=== PATIENT | male | born 1965 | race Caucasian/White ===

== ENCOUNTER → 2016-07-15 | Outpatient (CLI) | payer BC ==
[2016-07-15 13:02] LABS: ALT 47 U/L (21-72); AST 33 U/L (17-59); Alkaline Phosphatase 56 U/L (38-126); Anion Gap 9 mmol/L; Blood Urea Nitrogen 23 mg/dL (9-20); Calcium 9.4 mg/dL (8.4-10.2); Carbon Dioxide 29 mmol/L (22-30); Chloride 105 mmol/L (98-107); Cholesterol 94 mg/dL (<200); Glucose 87 mg/dL (74-99); HDL Cholesterol 42 mg/dL (40-60); Non-African American GFR(MDRD) >60 (>60 ml/min/1.73 sqM); Potassium 4.8 mmol/L (3.5-5.1); Sodium 143 mmol/L (137-145); Total Bilirubin 1.4 mg/dL (0.2-1.3); Total Protein 7.8 g/dL (6.3-8.2); Triglycerides 59 mg/dL (<150)
== END | disposition home or self-care (01) ==
LOC: LABWHC1 12:23
PROVIDERS: ATTEND Internal Medicine Interventional Cardiology
DX: E78.2 Mixed hyperlipidemia (principal)
CPT/HCPCS: 36415; 80053; 80061

== ENCOUNTER → 2017-01-31 | Outpatient (CLI) | payer BC ==
[2017-01-31 13:30] LABS: ALT 41 U/L (21-72); AST 30 U/L (17-59); Alkaline Phosphatase 65 U/L (38-126); Anion Gap 10 mmol/L; Blood Urea Nitrogen 23 mg/dL (9-20); Calcium 9.1 mg/dL (8.4-10.2); Carbon Dioxide 27 mmol/L (22-30); Chloride 104 mmol/L (98-107); Cholesterol 85 mg/dL (<200); Glucose 90 mg/dL (74-99); HDL Cholesterol 31 mg/dL (40-60); Non-African American GFR(MDRD) >60 (>60 ml/min/1.73 sqM); Potassium 4.2 mmol/L (3.5-5.1); Sodium 141 mmol/L (137-145); Total Bilirubin 1.3 mg/dL (0.2-1.3); Total Protein 7.4 g/dL (6.3-8.2); Triglycerides 81 mg/dL (<150)
== END | disposition home or self-care (01) ==
LOC: LABWHC1 12:35
PROVIDERS: ATTEND Internal Medicine Interventional Cardiology
DX: E78.2 Mixed hyperlipidemia (principal)
CPT/HCPCS: 36415; 80053; 80061

== ENCOUNTER → 2017-08-02 | Outpatient (CLI) | payer BC ==
[2017-08-02 14:13] LABS: ALT 35 U/L (21-72); AST 27 U/L (17-59); Cholesterol 82 mg/dL (<200); HDL Cholesterol 30 mg/dL (40-60); LDL Cholesterol,Calculated 36 mg/dL (0-99); Triglycerides 80 mg/dL (<150)
== END | disposition home or self-care (01) ==
LOC: LABWHC1 13:22
PROVIDERS: ATTEND Nurse Practitioner Adult Health
DX: E78.2 Mixed hyperlipidemia (principal)
CPT/HCPCS: 36415; 80061; 84450; 84460

== ENCOUNTER → 2018-08-24 | Outpatient (CLI) | payer BC ==
[2018-08-24 17:35] LABS: Albumin 4.1 g/dL (3.80-4.90); Albumin/Globulin Ratio 1.64 (1.60-3.17); Anion Gap 8.1 mmol/L (4.00-12.00); Calcium 8.7 mg/dL (8.7-10.3); Carbon Dioxide 23.9 mmol/L (21.6-31.8); Globulin 2.5 g/dL (1.6-3.3); LDL Cholesterol,Calculated 48.6 mg/dL (0.0-131.0); Potassium 4.3 mmol/L (3.5-5.5); Total Bilirubin 0.7 mg/dL (0.2-1.2); Total Protein 6.6 g/dL (6.2-8.2); VLDL Calculation 10.4 mg/dL (5.00-40.00)
== END | disposition home or self-care (01) ==
LOC: LABWHC1 11:33
PROVIDERS: ATTEND Internal Medicine Interventional Cardiology
DX: E78.2 Mixed hyperlipidemia (principal)
CPT/HCPCS: 36415; 80053; 80061

== ENCOUNTER → 2019-02-01 | Outpatient (CLI) | payer BC ==
[2019-02-01 10:20] LABS: Anisocytosis Slight; HCT 31.5 % (39.0-53.0); Hypochromasia Slight; MCH 21.9 pg (25.0-35.0); MCHC 31.6 g/dL (31.0-37.0); MCV 69.5 fL (80.0-100.0); Mean Platelet Volume 6.8; Microcytosis Marked; Platelet Count 154 k/uL (150-450); RBC 4.54 m/uL (4.30-5.90); RDW 16.3 % (11.5-15.5)
[2019-02-01 10:30] LABS: ALT 21 U/L (21-72); AST 26 U/L (17-59); African American GFR (CKD) >90 (>60 ml/min/1.73 sqM); Albumin 4.1 g/dL (3.5-5.0); Alkaline Phosphatase 55 U/L (38-126); Anion Gap 7 mmol/L; Blood Urea Nitrogen 12 mg/dL (9-20); Calcium 8.9 mg/dL (8.4-10.2); Carbon Dioxide 27 mmol/L (22-30); Chloride 108 mmol/L (98-107); Glucose 85 mg/dL (74-99); Potassium 4.3 mmol/L (3.5-5.1); Sodium 142 mmol/L (137-145); Total Bilirubin 1.2 mg/dL (0.2-1.3); Total Protein 7.1 g/dL (6.3-8.2)
== END ==
LOC: LABWHC1 09:48 → LABPAT 09:50
PROVIDERS: ATTEND Internal Medicine Interventional Cardiology
DX: Z01.812 Encounter for preprocedural laboratory examination (principal); R07.9 Chest pain, unspecified
CPT/HCPCS: 36415; 80053; 85027

== ENCOUNTER → 2019-02-01 | Outpatient (CLI) | payer BC ==
[2019-02-01 19:08] LABS: LDL Cholesterol,Calculated 16.2 mg/dL (0.0-131.0); VLDL Calculation 10.8 mg/dL (5.00-40.00)
== END | disposition home or self-care (01) ==
LOC: LABWHC1 09:51
PROVIDERS: ATTEND Internal Medicine Interventional Cardiology
DX: E78.2 Mixed hyperlipidemia (principal)
CPT/HCPCS: 36415; 80061

== ENCOUNTER 2019-02-07 10:17 | Day surgery (SDC) | payer BC ==
[~2019-02-07 10:17] MED LIST: ALPRAZolam 0.25 MG TAB PO PRN; ALPRAZolam 0.5 MG TAB PO PRN; ASPIRIN 325 MG TAB PO STA; ATORVASTATIN 80 MG TAB PO STA; NITROGLYCERIN SL TABS 0.4 MG TAB SUBLINGUAL PRN; SODIUM CHLORIDE 0.9% 1,000 ML in EMPTY BAG 1 BAG IV ONE
[2019-02-07] MEDS ORDERED: SODIUM CHLORIDE 0.9% 1,000 ML IV ONE (11:00)
[2019-02-07] MEDS ORDERED: LIDOCAINE 1% INJ 10MG/ML (20 ML MDV) ONE (11:43)
[2019-02-07] MEDS ORDERED: VERAPAMIL 2.5 MG/ML 2 ML AMP ONE (11:43)
[2019-02-07] MEDS ORDERED: fentaNYL (PF) 50 MCG/ML 2 ML AMP ONE (11:51)
[2019-02-07] MEDS ORDERED: fentaNYL (PF) 50 MCG/ML 2 ML AMP IV ONE (12:13)
[2019-02-07] MEDS ORDERED: LIDOCAINE 1% INJ 10MG/ML (20 ML MDV) SQ ONE (12:18)
[2019-02-07] MEDS ORDERED: VERAPAMIL SYRINGE (5 MG/10 ML) INTRAARTER ONE ×2 (12:19→12:20)
[2019-02-07] MEDS ORDERED: HEPARIN SODIUM 1,000 UN/ML (10ML VL) ONE (12:29)
[2019-02-07] MEDS ORDERED: BIVALIRUDIN BOLUS 250 MG/50 ML IV ONE (12:34)
[2019-02-07] MEDS ORDERED: BIVALIRUDIN 250 MG in SODIUM CHLORIDE 0.9% 50 ML IV ONE (12:35)
[2019-02-07] MEDS ORDERED: ADENOSINE 90 MG in SODIUM CHLORIDE 0.9% 60 ML IVP ONE (12:37)
[2019-02-07] MEDS ORDERED: CLOPIDOGREL 75 MG TAB ONE (12:46)
[2019-02-07] MEDS ORDERED: CLOPIDOGREL 75 MG TAB PO ONE (12:49)
[2019-02-07] MEDS ORDERED: IOPAMIDOL-370 125ML BTL INJ ONE (13:01)
[2019-02-07] MEDS ORDERED: IOPAMIDOL-370 100ML BTL INJ ONE (13:06)
[2019-02-07] MEDS ORDERED: NITROGLYCERIN SL TABS 0.4 MG TAB SUBLINGUAL PRN (13:25)
[2019-02-07] MEDS ORDERED: ATROPINE SULFATE 0.1 MG/ML 10ML SYRINGE IV PRN (13:25)
[2019-02-07] MEDS ORDERED: ZOLPIDEM 5 MG TAB PO PRN (13:25)
[2019-02-07] MEDS ORDERED: RX INFO: IV CONTRAST WAS GIVEN 1 EACH MISC MISCELLANE PRN (13:25)
[2019-02-07] MEDS ORDERED: MAG HYDROX/AL HYDROX/SIMETH 30 ML CUP PO PRN (13:25)
[2019-02-07] MEDS ORDERED: SODIUM CHLORIDE 0.9% 1,000 ML IV SCH (13:30)
[2019-02-07 14:40] VITALS: BMI 25.0
[2019-02-07] MEDS: CARVEDILOL 3.125 MG TAB PO SCH (17:09)
--- NOTE | 2019-02-07 20:27 | CC ---
CARDIAC CATHETERIZATION REPORT Mr. Lin is a 54-year-old male with known history of hypertension, hyperlipidemia, history of coronary artery disease who has underwent stenting of his proximal LAD in a setting of myocardial infarction in March of 2015. Recently he has been complaining of exertional chest discomfort and had a positive myocardial perfusion imaging, with stress induced ischemia in the inferior wall. In view of that, recommendation regarding cardiac catheterization. The procedure as well as risks and complication were discussed with the patient who is in full understanding and agreement. DESCRIPTION OF THE PROCEDURE: Patient was brought to the lab rep in a fasting state after receiving fentanyl and Benadryl. He was draped and prepped in conventional fashion. Using Xylocaine anesthesia and Seldinger technique, a 6-[place] sheath was introduced in the right radial artery. Selective right and left coronary angiography was performed using 5- [place] 3 and half bend right and left Rocío catheter. Multiple views of the coronary arteries including hemiaxial views were obtained. Following that, angioplasty and stenting was performed. Following that, a 5-[place] tight pigtail catheter was introduced in the left ventricle and a 30 degree ANTONIO view of the left ventricle was obtained. Following that, catheter and sheath were removed. Hemostasis was obtained with deployment of a TR band. There was no immediate complication. Patient is returned to his room in stable condition. Of note, the patient received intraarterial verapamil as well as Angiomax per protocol. FINDINGS: FLUOROSCOPY: There was calcification involving the left anterior descending artery, left circumflex and the right coronary artery. CORONARY ANGIOGRAM: Left descending artery: This is a short size vessel bifurcating into left circumflex, left anterior descending artery. Left main coronary artery has no evidence of high- grade stenosis. Left anterior descending artery: This is a large-sized vessel, reaching towards the apex with a wraparound apex segment. The stented segment in the proximal LAD is patent with mild intimal restenosis of 20% without any evidence of high-grade stenosis. The mid LAD has mild plaque. Left circumflex: This is a large dominant vessel bifurcating distally PDA and posterolateral segment branches. Giving rise to 2 obtuse marginal branch. The left circumflex proximally has an eccentric 60%-70% lesion. The rest of the vessel has no high-grade stenosis. Right coronary artery: This is a small nondominant vessel that has 90% stenosis at the takeoff of the acute marginal branch. Beyond that, the vessel is quite small. LEFT VENTRICULOGRAM: Left ventriculogram was performed in 30 degree ANTONIO view and revealed anteroapical hypokinesis. Ejection fraction 45% to 50%. There was no significant mitral regurgitation. HEMODYNAMICS: There was no gradient across the aortic valve. The left ventricle end-diastolic pressure is 6 to 10 mmHg. CONCLUSION: 1. No evidence of significant restenosis in the stented LAD segment. 2. Borderline significant lesion in the proximal left circumflex. 3. Significant disease in the mid nondominant right coronary artery. 4. Mildly impaired left ventricular systolic function. RECOMMENDATION: In view of finding anatomy, I recommend proceeding with fractional flow reserve measurement of the left circumflex and depending on that, further recommendations will be made. Those findings and recommendations were discussed with the patient and he is in full understanding and agreement. MMODL / IJN: [id number] /
--- NOTE | 2019-02-07 20:57 | PTCA ---
PERCUTANEOUSTRANS CORORONARY ANGIOGRAPHY Mr. Lin is 54-year-old male with a known history of coronary artery disease status post anterior wall myocardial infarction in 2015, who presented with symptoms of chest pain, a positive stress test, underwent cardiac catheterization, was found to have a borderline significant lesion in the proximal left circumflex. In view of that, recommendation made regarding fractional flow reserve measurement and depending on that, angioplasty and stenting I have indicated. Those findings and recommendations were discussed with the patient and he is in full understanding and agreement. DESCRIPTION OF THE PROCEDURE: A 6-[place] 3 and half guiding catheter was introduced into the system. After cannulating the left main, a [employer] Doppler flow wire was advanced into the left circumflex, positioned distally and after infusion of the IV adenosine per protocol, the fractional flow reserve was 80% . At that point, the decision was made to proceed with angioplasty and stenting. A 0.014 balanced medium weight J-wire was advanced and positioned in the LAD. Subsequently, attempt to advance a 4.0 x 12 mm Xience Antonette stent were unsuccessful. That stent was removed and another 0.014 balanced medium weight J-wire was advanced and positioned in the distal LAD next to the Doppler flow wire in a jonah fashion. Attempts to advance the stent were unsuccessful. The stent was removed and a 3.0 x 12 mm Trek balloon was advanced and one inflation at 10 atmospheres was done. Following that, the balloon was removed and a 4.0 x 12 mm Xience Antonette stent was advanced, deployed and was dilated at 18 atmospheres. After the last inflation, after appropriate wait, the balloon and the guidewire were withdrawn back in the guiding catheter. Images were obtained and repeated. Those images revealed stable successful stenting. At that point, the guiding catheter, the balloon and the guidewire were removed and left ventriculogram was performed. Following that, catheter and sheath were removed. Hemostasis was obtained with deployment of a TR band. There was no immediate complication. Patient is returned to his room in stable condition. Of note, the patient had chest discomfort and EKG changes with the inflation that resolved at the end of the procedure. He received Angiomax per protocol as well as oral loading dose of clopidogrel. RESULTS: Successful stenting of the proximal left circumflex with fractional flow reserve of 80 pre-intervention with reduction of stenosis from 60-70 percent pre to 0% post. RECOMMENDATIONS: Patient will be continued on aspirin, Plavix and statin. The importance of dual antiplatelet treatment were discussed with the patient who is in full understanding and agreement. Duration of procedure is 53 minutes. ARIEL / RIVKAN: [id number] / CONOR
[2019-02-08 04:45] VITALS: RESP 16
[2019-02-08] MEDS: CARVEDILOL 3.125 MG TAB PO SCH (06:32)
[2019-02-08 07:07] LABS: African American GFR (CKD) >90 (>60 ml/min/1.73 sqM); Anion Gap 8 mmol/L; Blood Urea Nitrogen 12 mg/dL (9-20); Calcium 8.5 mg/dL (8.4-10.2); Carbon Dioxide 23 mmol/L (22-30); Chloride 108 mmol/L (98-107); Glucose 79 mg/dL (74-99); Non-African American GFR(CKD) >90 (>60 ml/min/1.73 sqM); Potassium 4.2 mmol/L (3.5-5.1); Sodium 139 mmol/L (137-145)
[2019-02-08 07:41] VITALS: BP 110/65; PULSE 64; TEMP 97.9
--- NOTE | 2019-02-08 08:07 | PN ---
PROGRESS NOTE Mr. Lin is a 54-year-old male who has a known history of coronary artery disease who presented with symptoms of chest discomfort and abnormal myocardial perfusion imaging, underwent cardiac catheterization and stenting of his proximal left circumflex. He is doing well this morning, ambulating without difficulty, denying any chest pain. No dizziness. No palpitation. No nausea. He continued to be on aspirin once a day, Plavix 75 mg daily, Lipitor 40 mg daily, Coreg 3.125 mg twice a day, lisinopril 2.5 mg daily. PHYSICAL EXAMINATION: Blood pressure 109/50 with the heart rate in the 60s. LUNGS: Clear. HEART: Regular rate and rhythm. S1, S2. No S3. No rub. ABDOMEN: Soft, nontender. EXTREMITIES: No edema. Right radial pulse intact. EKG revealed sinus mechanism with no acute ST-segment changes. LAB DATA: Lab data revealed BUN and creatinine 12 and 0.58, potassium 4.2. IMPRESSION: 1. Status post stenting of the left circumflex. 2. Prior history of myocardial infarction with stenting of the LAD in 2014. 3. Hyperlipidemia. 4. Ischemic cardiomyopathy. RECOMMENDATION: Patient should be able to be discharged home today and followed as an outpatient. MMODL / IJN: [id number] /
[2019-02-08] MEDS ORDERED: ASPIRIN 81 MG PO SCH (09:00)
[2019-02-08] MEDS ORDERED: LISINOPRIL 2.5 MG TAB PO SCH (09:00)
[2019-02-08] MEDS ORDERED: ATORVASTATIN 40 MG TAB PO SCH (09:00)
[2019-02-08] MEDS ORDERED: CLOPIDOGREL 75 MG TAB PO SCH (12:00)
== END 2019-02-08 08:25 | disposition home or self-care (01) ==
LOC: CATHCVL 10:17 → 3SCARD 13:39 → CATHCVL 02-08 08:25
PROVIDERS: ATTEND Internal Medicine Interventional Cardiology
DX: I25.119 Atherosclerotic heart disease of native coronary artery with unspecified angina pectoris (principal); Z95.5 Presence of coronary angioplasty implant and graft; I10 Essential (primary) hypertension; I25.5 Ischemic cardiomyopathy; I25.2 Old myocardial infarction; E78.2 Mixed hyperlipidemia; E78.00 Pure hypercholesterolemia, unspecified; M25.50 Pain in unspecified joint; Z79.02 Long term (current) use of antithrombotics/antiplatelets; Z79.82 Long term (current) use of aspirin; Z79.899 Other long term (current) drug therapy; Z82.49 Family history of ischemic heart disease and other diseases of the circulatory system; Z87.891 Personal history of nicotine dependence
CPT/HCPCS: 93458; 93571; 80048; C9600; C1769 ×2; C1887; C1894; C1725; C1874; J2001; J3010; J0583; J0153; Q9967 ×2

== ENCOUNTER → 2019-05-08 | Outpatient (CLI) | payer BC ==
[2019-05-08 17:36] LABS: Chol/HDL Ratio 2.3; LDL Cholesterol,Calculated 41.8 mg/dL (0.0-131.0); VLDL Calculation 15.2 mg/dL (5.00-40.00)
== END | disposition home or self-care (01) ==
LOC: LABWHC1 10:25
PROVIDERS: ATTEND Nurse Practitioner Adult Health
DX: E78.2 Mixed hyperlipidemia (principal)
CPT/HCPCS: 36415; 80061; 84450; 84460

== ENCOUNTER → 2019-11-21 | Outpatient (CLI) | payer BC ==
[2019-11-21 17:42] LABS: African American GFR (CKD) 118.2 (60.0-200.0); Albumin 4.4 g/dL (3.80-4.90); Albumin/Globulin Ratio 1.63 (1.60-3.17); Anion Gap 12.3 mmol/L (4.00-12.00); Calcium 9.3 mg/dL (8.7-10.3); Carbon Dioxide 25.7 mmol/L (21.6-31.8); Chol/HDL Ratio 2.47; Globulin 2.7 g/dL (1.6-3.3); Potassium 4.5 mmol/L (3.5-5.5); Total Bilirubin 1.3 mg/dL (0.3-1.2); Total Protein 7.1 g/dL (6.2-8.2)
== END | disposition home or self-care (01) ==
LOC: LABWHC1 08:29
PROVIDERS: ATTEND Nurse Practitioner Adult Health
DX: E78.2 Mixed hyperlipidemia (principal); I10 Essential (primary) hypertension
CPT/HCPCS: 36415; 80053; 80061

== ENCOUNTER → 2019-12-04 | Outpatient (CLI) | payer BC | END | disposition home or self-care (01) | LOC: LABWHC1 11:23 | PROVIDERS: ATTEND Internal Medicine Interventional Cardiology | DX: U07.1 COVID-19 (principal) ==

== ENCOUNTER 2019-12-06 06:14 | Day surgery (SDC) | payer BC ==
[2019-12-04 13:41] VITALS: BMI 26.9
[2019-12-06 06:52] VITALS: RESP 16; TEMP 98.1
[2019-12-06] MEDS ORDERED: SODIUM CHLORIDE 0.9% 1,000 ML IV ONE (07:14)
[2019-12-06] MEDS ORDERED: VERAPAMIL 2.5 MG/ML 2 ML AMP ONE (07:27)
[2019-12-06] MEDS ORDERED: HEPARIN SODIUM 1,000 UN/ML (10ML VL) ONE (07:28)
[2019-12-06] MEDS ORDERED: fentaNYL (PF) 50 MCG/ML 2 ML AMP ONE (07:28)
[2019-12-06] MEDS ORDERED: LIDOCAINE 1% INJ 10MG/ML (20 ML MDV) ONE (07:28)
[2019-12-06 07:32] LABS: Basophils % (A) 1 %; Eosinophils # (A) 0.3 k/uL (0-0.7); Eosinophils % (A) 5 %; HCT 36.3 % (39.0-53.0); HGB 11.7 gm/dL (13.0-17.5); Hypochromasia Slight; Lymphocytes # (A) 2.1 k/uL (1.0-4.8); Lymphocytes % (A) 34 %; MCH 22.2 pg (25.0-35.0); MCHC 32.1 g/dL (31.0-37.0); MCV 69.2 fL (80.0-100.0); Mean Platelet Volume 7.5; Microcytosis Marked; Monocytes # (A) 0.5 k/uL (0-1.0); Monocytes % (A) 7 %; Neutrophils # (A) 3.2 k/uL (1.3-7.7); Neutrophils % (A) 51 %; Platelet Count 144 k/uL (150-450); RBC 5.25 m/uL (4.30-5.90); RDW 15.2 % (11.5-15.5); WBC 6.4 k/uL (3.8-10.6)
[2019-12-06] MEDS ORDERED: fentaNYL (PF) 50 MCG/ML 2 ML AMP IVP ONE (07:52)
[2019-12-06] MEDS ORDERED: LIDOCAINE 1% INJ 10MG/ML (20 ML MDV) SQ ONE (07:52)
[2019-12-06] MEDS ORDERED: VERAPAMIL SYRINGE (5 MG/10 ML) INTRAARTER ONE (07:56)
[2019-12-06] MEDS ORDERED: HEPARIN SODIUM 1,000 UN/ML (10ML VL) IV ONE (08:05)
[2019-12-06] MEDS ORDERED: NITROGLYCERIN 1000MCG/10ML SYRINGE INTRACORON ONE (08:25)
[2019-12-06] MEDS ORDERED: IOPAMIDOL-370 125ML BTL INJ ONE (08:29)
[2019-12-06] MEDS ORDERED: IOPAMIDOL-370 100ML BTL INJ ONE (08:47)
[2019-12-06] MEDS ORDERED: NITROGLYCERIN SL TABS 0.4 MG TAB SUBLINGUAL PRN ×2 (08:55→08:56)
[2019-12-06] MEDS ORDERED: RX INFO: IV CONTRAST WAS GIVEN 1 EACH MISC MISCELLANE PRN (08:55)
[2019-12-06] MEDS ORDERED: ZOLPIDEM 5 MG TAB PO PRN (08:55)
[2019-12-06] MEDS ORDERED: MAG HYDROX/AL HYDROX/SIMETH 30 ML CUP PO PRN (08:55)
[2019-12-06] MEDS ORDERED: ATROPINE SULFATE 0.1 MG/ML 10ML SYRINGE IV PRN (08:55)
[2019-12-06] MEDS ORDERED: CARVEDILOL 3.125 MG TAB PO SCH (09:00)
[2019-12-06] MEDS ORDERED: SODIUM CHLORIDE 0.9% 1,000 ML IV SCH (09:00)
[2019-12-06] MEDS ORDERED: CLOPIDOGREL 75 MG TAB PO SCH (09:00)
--- NOTE | 2019-12-06 09:44 | CC ---
CARDIAC CATHETERIZATION REPORT CARDIAC CATHETERIZATION PROCEDURE NOTE: Mr. Maki is a 54-year-old male with a known history of coronary artery disease, status post stenting of the LAD and left circumflex, who recently has been complaining of episode of chest discomfort and had abnormal myocardial perfusion imaging. In view of that, recommendation made regarding cardiac catheterization. The procedures, risks, and complication were discussed with the patient who is in full understanding and agreement. PROCEDURE: Patient was brought to pit laborer in a fasting semi-sedated state after receiving fentanyl and Benadryl and achieving moderate conscious sedated state. Using Xylocaine anesthesia and Seldinger technique, a 6-[place] sheath was introduced in the right radial artery. Selective right and left coronary angiography performed using 5-[place] 3.5 bend right and left Rocío catheter. Multiple views of the coronary artery including hemiaxial views obtained, the right Rocío catheter was used to cross the aortic valve and left ventricular end-diastolic pressure was calculated. Following that, catheter were removed, images were reviewed. FINDINGS: LEFT MAIN: This is a short size vessel, bifurcating into left circumflex, left anterior descending artery, left main coronary artery has no evidence of high-grade stenosis. LEFT ANTERIOR DESCENDING ARTERY: This is a large-sized vessel, reaching toward the apex, tapers down distal third. The stented segment in the proximal LAD has mild intimal restenosis of about 20% to 30%, the mid LAD has about 20% plaque. The rest of the vessel has no high-grade stenosis. LEFT CIRCUMFLEX: This is a large codominant vessel, giving rise to 2 obtuse marginal branches, distally bifurcating PDA and posterolateral segment branches. The stented segment in the proximal left circumflex is patent with no evidence of significant obstructive disease. There is mild intimal disease in the mid segment of about 20%- 30%. RIGHT CORONARY ARTERY: This is a small codominant vessel, giving rise to a small PDA. The right coronary artery in the mid segment has a 90% stenosis. . LEFT VENTRICULOGRAM: Left ventriculogram was not performed. HEMODYNAMICS: There was no gradient across the aortic valve. The left ventricular end- diastolic pressure was 12-16 mmHg. CONCLUSION: 1. Patent stent in the LAD and the left circumflex with mild obstructive disease. 2. Significant disease in the small codominant right coronary artery. RECOMMENDATION: In view of finding and the anatomy and the results of his stress test, I have recommended a to proceed with angioplasty and stenting of the right coronary artery. The procedures, risks, and complication were discussed with the patient who is in full understanding and agreement. MMRADHA / RIVKAN: [id number] /
--- NOTE | 2019-12-06 09:47 | PTCA ---
PERCUTANEOUSTRANS CORORONARY ANGIOGRAPHY Mr. Lin is 54-year-old male with a known history of coronary artery disease, status post percutaneous revascularization of the LAD and the left circumflex, who was been complaining of active episodes of chest discomfort, had a myocardial perfusion imaging revealed evidence of evidence of inferior wall ischemia. In view of that, his cardiac catheterization that was performed showed significant obstructive disease involving the mid right coronary artery. Recommendation made regarding angioplasty and stenting. The procedures, risks, and complication were discussed with the patient who is in full understanding and agreement. PROCEDURE: A 6-[place] FR4 guiding catheter introduced into the system after cannulating the right coronary ostium, a 0.014 balanced medium weight J-wire was advanced across the lesion, positioned distally. Another 0.014 balanced medium J-wire was advanced next to the first one in a jonah fashion. Subsequently, 2.0 x 12 mm Trek balloon was advanced and one inflation at 10 atmospheres was done. Following that, the balloon was removed and a 2.5 x 18 mm Xience Antonette stent was deployed, postdilated at 16 atmospheres. Following that, the balloon was removed and a 3.0 x 12 mm [place] Trek balloon was advanced and one inflation was done at 12 atmospheres. After the last inflation, after appropriate wait, the balloon and the guidewire were withdrawn back in the guiding catheter. Images were obtained and repeated. Those images reveal stable successful stenting. At that point, the guiding catheter, the balloon and the guidewire were removed. The sheath was removed, hemostasis was obtained with deployment of a TR band. There was no immediate complication. Patient is returned to his room in stable condition. Of note, the patient received 8000 units of intravenous heparin as well as intra-arterial verapamil. He was continued on clopidogrel. He had no significant chest pain or EKG changes with the inflations. RESULTS: Successful stenting of the mid right coronary artery with reduction of stenosis from 90% to 0%. RECOMMENDATION: Patient will be continued on aspirin, Plavix, beta reba, LOBO inhibitor and statin. The importance of dual antiplatelet treatment were discussed with the patient and he is in full understanding and agreement. MMODL / IJN: [id number] /
[2019-12-06 15:24] VITALS: BP 123/68
[2019-12-06 15:54] VITALS: PULSE 59
[2019-12-07] MEDS ORDERED: ASPIRIN 81 MG PO SCH (09:00)
[2019-12-07] MEDS ORDERED: CLOPIDOGREL 75 MG TAB PO SCH (09:00)
[2019-12-07] MEDS ORDERED: ATORVASTATIN 80 MG TAB PO SCH (09:00)
--- NOTE | 2019-12-10 10:50 | CDI ---
Date: 12.10.19 CDS/Casting Operator Helper Name: Lucia Don Phone: If any questions, call Maryan Mars Compliance Analyst at [phone] Patient Name: Mason Lin Admit Date: 12.06.19 Discharge Date: 12.06.19 ATTENTION: The [facility] Coding Staff appreciate your assistance in clarifying documentation. Please respond to the clarification below the line at the bottom and electronically sign. The [facility] Coding staff will review the response and follow-up if needed. Please note: Queries are made part of the Legal Health Record. If you have any questions, please contact the Compliance Analyst. Dear Dr. Cage In your cath report under the Left Anterior Descending artery you have dictated The stented segment in the proximal LAD has mild intimal restenosis of about 20% to 30% and in the conclusion you have dictated patent stent in the LAD. Does the stent in the LAD have restenosis? If so, is it in or end stent? Thank you for your kind consideration. ____Mild in stent restenosis MTDD
== END 2019-12-06 16:01 | disposition home or self-care (01) ==
LOC: CATHCVL 06:14
PROVIDERS: ATTEND Internal Medicine Interventional Cardiology
DX: I25.10 Atherosclerotic heart disease of native coronary artery without angina pectoris (principal); R07.89 Other chest pain; R94.39 Abnormal result of other cardiovascular function study; I10 Essential (primary) hypertension; I25.2 Old myocardial infarction; E78.00 Pure hypercholesterolemia, unspecified; Z87.891 Personal history of nicotine dependence; Z95.5 Presence of coronary angioplasty implant and graft; Z82.49 Family history of ischemic heart disease and other diseases of the circulatory system; Z79.82 Long term (current) use of aspirin; Z79.02 Long term (current) use of antithrombotics/antiplatelets; Z79.899 Other long term (current) drug therapy
CPT/HCPCS: 93458; 85347; 85025; C9600; C1769 ×4; C1887; C1725 ×2; C1894 ×2; C1874; J2001; J3010; J1644; Q9967 ×2

== ENCOUNTER → 2021-02-09 | Outpatient (CLI) | payer BC ==
[2021-02-09 21:26] LABS: African American GFR (CKD) 131.2 (60.0-200.0); Albumin 4.3 g/dL (3.80-4.90); Albumin/Globulin Ratio 1.54 (1.60-3.17); Anion Gap 8.2 mmol/L (4.00-12.00); Calcium 8.3 mg/dL (8.7-10.3); Carbon Dioxide 22.8 mmol/L (21.6-31.8); Chol/HDL Ratio 2.52; Globulin 2.8 g/dL (1.6-3.3); LDL Cholesterol,Calculated 38.4 mg/dL (0.0-131.0); Non-African American GFR(CKD) 113.2 (60.0-200.0); Total Protein 7.1 g/dL (6.2-8.2); VLDL Calculation 11.6 mg/dL (5.00-40.00)
== END | disposition home or self-care (01) ==
LOC: LABWHC1 11:04
PROVIDERS: ATTEND Nurse Practitioner Adult Health
DX: I10 Essential (primary) hypertension (principal); E78.2 Mixed hyperlipidemia
CPT/HCPCS: 36415; 80053; 80061

== ENCOUNTER → 2022-07-21 | Outpatient (CLI) | payer BC ==
[2022-07-21 21:24] LABS: ALT 13 U/L (10-49); AST 20 U/L (14-35); African American GFR (CKD) 122.3 (60.0-200.0); Albumin 4.5 g/dL (3.8-4.9); Albumin/Globulin Ratio 1.67 (1.60-3.17); Alkaline Phosphatase 71 U/L (41-126); BUN/Creat Ratio 24.71 Ratio (12.00-20.00); Blood Urea Nitrogen 17.3 mg/dL (9.0-27.0); Carbon Dioxide 27.8 mmol/L (20.0-27.5); Chloride 104 mmol/L (96-109); Chol/HDL Ratio 2.37 Ratio; Globulin 2.7 g/dL (1.6-3.3); Glucose 79 mg/dL (70-110); LDL Cholesterol,Calculated 36.6 mg/dL (0.0-131.0); Non-African American GFR(CKD) 105.5 (60.0-200.0); Potassium 3.5 mmol/L (3.5-5.5); Sodium 141 mmol/L (135-145); Total Protein 7.2 g/dL (6.2-8.2); VLDL Calculation 11.76 mg/dL (5.00-40.00)
== END | disposition home or self-care (01) ==
LOC: LABWHC1 12:07
PROVIDERS: ATTEND Internal Medicine Interventional Cardiology
DX: E78.2 Mixed hyperlipidemia (principal)
CPT/HCPCS: 36415; 80053; 80061

== ENCOUNTER → 2024-07-11 | Outpatient (CLI) | payer BC ==
[2024-07-11 21:13] LABS: HCT 38.9 % (39.6-50.0); HGB 12.1 g/dL (13.0-17.0); MCHC 31.1 g/dL (32.0-37.0); MCV 67.5 FL (80.0-97.0); Mean Platelet Volume 10.5 FL (9.5-12.2); NRBC Per 100 WBC 0 X 10*3/uL (0.00-0.01); Platelet Count 194 X 10*3/uL (140-440); RBC 5.76 X 10*6/uL (4.40-5.60); RDW 17.4 % (11.5-14.5); WBC 8.12 X 10*3/uL (4.50-10.00)
[2024-07-11 21:20] LABS: ALT 14 U/L (10-49); AST 15 U/L (14-35); Albumin 4.2 g/dL (3.8-4.9); Alkaline Phosphatase 70 U/L (41-126); BUN/Creat Ratio 15.75 Ratio (12.00-20.00); Blood Urea Nitrogen 12.6 mg/dL (9.0-27.0); Calcium 8.9 mg/dL (8.7-10.3); Carbon Dioxide 27.9 mmol/L (21.6-31.8); Chloride 104 mmol/L (96-109); Chol/HDL Ratio 2.42 Ratio; Glucose 90 mg/dL (70-110); LDL Cholesterol,Calculated 48.1 mg/dL (0.0-131.0); Potassium 4.4 mmol/L (3.5-5.5); Sodium 141 mmol/L (135-145); Total Bilirubin 0.7 mg/dL (0.3-1.2); Total Protein 7.2 g/dL (6.2-8.2)
== END | disposition home or self-care (01) ==
LOC: LABWHC1 13:44
PROVIDERS: ATTEND Internal Medicine Interventional Cardiology
DX: I25.10 Atherosclerotic heart disease of native coronary artery without angina pectoris (principal); E78.2 Mixed hyperlipidemia
CPT/HCPCS: 36415; 80053; 80061; 85027